=== PATIENT | male | born 1965 | race Caucasian/White ===

== ENCOUNTER 2019-06-30 09:25 | Day surgery (SDC) | payer OTHER ==
[2019-06-30] MEDS ORDERED: LIDOCAINE 2% (SDV) 5 ML INJ (12:30)
[2019-06-30] MEDS ORDERED: PROPOFOL 40 ML (12:30)
[2019-06-30] MEDS ORDERED: FENTAnyl 50 MCG/ML VIAL (12:31)
== END 2019-06-30 14:07 | disposition home or self-care (01) ==
LOC: GIL 09:25
DX: Z12.11 Encounter for screening for malignant neoplasm of colon (principal); K29.50 Unspecified chronic gastritis without bleeding; K64.8 Other hemorrhoids; K76.6 Portal hypertension; K31.89 Other diseases of stomach and duodenum
CPT/HCPCS: 43239; 88305; 88312